=== PATIENT | female | born 2000 | race Caucasian/White ===

== ENCOUNTER 2019-03-11 11:40 | Emergency (ER) | payer MEDICAID ==
[~2019-03-11] VITALS: Ht 157.5 cm; Wt 65.8 kg
[2019-03-11 15:21] VITALS: BP 110/55
== END 2019-03-11 15:56 | disposition home or self-care (01) ==
LOC: ED 11:40
DX: O26.892 Other specified pregnancy related conditions, second trimester (principal); R11.2 Nausea with vomiting, unspecified; R51 Headache; Z3A.17 17 weeks gestation of pregnancy

== ENCOUNTER 2019-05-04 14:14 | Emergency (ER) | payer MEDICAID ==
[~2019-05-04] VITALS: Ht 157.5 cm; Wt 70.8 kg
[2019-05-04 14:22] VITALS: BP 118/74; Ht 157.5 cm; Wt 70.8 kg
== END 2019-05-04 15:43 | disposition left against medical advice (07) ==
LOC: ED 14:14
DX: Z53.21 Procedure and treatment not carried out due to patient leaving prior to being seen by health care provider (principal)